=== PATIENT | male | born 1930 | race Caucasian/White ===

== ENCOUNTER 2018-09-14 00:29 | Inpatient (IN) ==
[2018-09-14] MEDS ORDERED: ALBUTEROL 2.5 MG/3 ML NEB RESP TX STA (01:20)
[2018-09-14 01:55] LABS: ABG Base Excess 2.5 MMOL/L (-2.5-2.5); ABG HCO3 26.6 MMOL/L (20-26); ABG Oxygen Saturation 99.3 % (95-100); ABG PCO2 48.7 MM HG (35-48); ABG PH 7.376 (7.35-7.45); ABG TCO2 25.2 MMOL/L (23-27); Allen Test Positive; Pt O2 Delivery Device CPAP
[2018-09-14] MEDS ORDERED: guaiFENesin/DM ER 600-30 MG TABLET PO PRN (02:58)
[2018-09-14] MEDS ORDERED: ACETAMINOPHEN 325 MG TABLET PO PRN (02:58)
[2018-09-14] MEDS ORDERED: ONDANSETRON 4 MG/2 ML VIAL IV PRN (02:58)
[2018-09-14 03:39] LABS: Calcium 8.6 MG/DL (8.5-10.1); Osmolality,Calculated 287.5 MOS/KG (273-304)
[2018-09-14 03:46] LABS: Basophils % 0.2 % (0.0-0.8); Hematocrit 40.4 VOL% (42.0-52.0); Immature Granulocytes % 0.7 %; Immature Granulocytes Absolute 0.12 #; Lymphocytes # 0.8 10*3/uL (1.4-4.0); Lymphocytes % 4.8 % (21.2-54.2); Mean Corpuscular HGB Conc 29.7 GM/DL (32-36); Mean Corpuscular Volume 89.2 FL (87-102); Mean Platelet Volume 10.3 FL (9.6-12.0); Monocytes % 1.4 % (1.7-12.7); Neutrophils % 92.9 % (38.7-73.9); Platelet Count 314 T/CUMM (130-400); Red Blood Count 4.53 MC/CUMM (3.8-5.5); Red Cell Distribution Width 15.4 % (9.3-17.3); White Blood Count 16.5 T/CUMM (4-12)
[2018-09-14 04:14] LABS: Lymphocytes 1 % (20-55); Platelet Estimate Normal; Polychromasia Few; Segmented Neutrophils 98 % (50-85); Total Cells Counted 100
[2018-09-14] MEDS: methylPREDNISolone SOD SUC 40 MG/1 ML VIAL IV SCH ×3 (05:27→23:46)
[2018-09-14] MEDS: ALBUTEROL 0.63 MG/3 ML NEB RESP TX SCH ×3 (07:47→19:30)
[2018-09-14] MEDS: MONTELUKAST 10 MG TABLET PO SCH (09:14)
[2018-09-14] MEDS: amLODIPine 5 MG TABLET PO SCH (09:14)
[2018-09-14] MEDS: FINASTERIDE 5 MG TABLET PO SCH (09:14)
[2018-09-14] MEDS: ALLOPURINOL 100 MG TABLET PO SCH (09:14)
[2018-09-14] MEDS: ENOXAPARIN 40 MG/0.4 ML SYRINGE SUBCUT SCH (09:14)
[2018-09-14] MEDS: PANTOPRAZOLE 40 MG TABLET PO SCH (09:14)
[2018-09-14] MEDS: cefTRIAXone 2,000 MG in SYRINGE 1 EACH IV SCH (11:39)
[2018-09-14] MEDS: ASPIRIN EC 81 MG TABLET PO SCH (11:51)
[2018-09-14] MEDS: metFORMIN 500 MG TABLET PO SCH (11:51)
[2018-09-14] MEDS: AZITHROMYCIN INJ 500 MG in SODIUM CHLORIDE 0.9% 250 ML IV SCH (11:53)
[2018-09-14] MEDS: BUDESONIDE 90 MCG INH SCH ×2 (16:50→23:33)
[2018-09-14] MEDS: TAMSULOSIN 0.4 MG CAPSULE PO SCH (17:16)
[2018-09-14] MEDS: INSULIN LISPRO 100 UNIT/ML SUBCUT SCH ×2 (17:16→21:16)
[2018-09-14] MEDS: ALBUTEROL 0.63 MG/3 ML NEB RESP TX PRN (18:09)
[2018-09-14] MEDS: INSULIN GLARGINE 100 UNIT/ML SUBCUT SCH (21:17)
[2018-09-14] MEDS: SENNA 8.6 MG TABLET PO SCH (21:17)
[2018-09-14] MEDS: MELATONIN 3 MG TABLET PO SCH (21:18)
[2018-09-15] MEDS: ALBUTEROL 0.63 MG/3 ML NEB RESP TX SCH ×4 (01:12→18:30)
[2018-09-15] MEDS: MONTELUKAST 10 MG TABLET PO SCH (08:49)
[2018-09-15] MEDS: amLODIPine 5 MG TABLET PO SCH (08:49)
[2018-09-15] MEDS: FINASTERIDE 5 MG TABLET PO SCH (08:49)
[2018-09-15] MEDS: PANTOPRAZOLE 40 MG TABLET PO SCH (08:49)
[2018-09-15] MEDS: THEOPHYLLINE ER (24 HR) 300 MG CAPSULE PO SCH (08:49)
[2018-09-15] MEDS: ALLOPURINOL 100 MG TABLET PO SCH (08:49)
[2018-09-15] MEDS: ENOXAPARIN 40 MG/0.4 ML SYRINGE SUBCUT SCH (08:50)
[2018-09-15] MEDS: INSULIN LISPRO 100 UNIT/ML SUBCUT SCH ×4 (08:52→20:31)
[2018-09-15] MEDS: metFORMIN 500 MG TABLET PO SCH (11:26)
[2018-09-15] MEDS: methylPREDNISolone SOD SUC 40 MG/1 ML VIAL IV SCH ×2 (11:27→23:49)
[2018-09-15] MEDS: ASPIRIN EC 81 MG TABLET PO SCH (11:27)
[2018-09-15] MEDS: cefTRIAXone 2,000 MG in SYRINGE 1 EACH IV SCH (11:29)
[2018-09-15] MEDS: AZITHROMYCIN INJ 500 MG in SODIUM CHLORIDE 0.9% 250 ML IV SCH (11:34)
[2018-09-15] MEDS: BUDESONIDE 90 MCG INH SCH ×2 (11:38→20:38)
[2018-09-15] MEDS: BUDESONIDE 0.5 MG/2 ML NEB RESP TX SCH ×2 (12:17→18:30)
[2018-09-15] MEDS: ARFORMOTEROL 15 MCG/2 ML NEB RESP TX SCH ×2 (12:17→18:30)
[2018-09-15] MEDS: DORNASE ALFA 2.5 MG/2.5 ML VIAL RESP TX SCH ×2 (12:17→18:30)
[2018-09-15] MEDS: POLYETHYLENE GLYCOL POWDER 17 GM PACK PO PRN (14:38)
[2018-09-15] MEDS: DOCUSATE SODIUM 100 MG CAPSULE PO PRN (14:38)
[2018-09-15] MEDS: TAMSULOSIN 0.4 MG CAPSULE PO SCH (17:40)
[2018-09-15] MEDS: MELATONIN 3 MG TABLET PO SCH (20:31)
[2018-09-15] MEDS: SENNA 8.6 MG TABLET PO SCH (20:31)
[2018-09-15] MEDS: INSULIN GLARGINE 100 UNIT/ML SUBCUT SCH (20:34)
[2018-09-16 04:46] LABS: Basophils % 0.2 % (0.0-0.8); Eosinophils % 0.1 % (0.00-10.9); Hematocrit 39.7 VOL% (42.0-52.0); Hemoglobin 12.2 GM/DL (14.0-18.0); Immature Granulocytes % 0.9 %; Immature Granulocytes Absolute 0.11 #; Lymphocytes # 1.5 10*3/uL (1.4-4.0); Lymphocytes % 12.1 % (21.2-54.2); Mean Corpuscular HGB Conc 30.7 GM/DL (32-36); Mean Corpuscular Volume 87.4 FL (87-102); Mean Platelet Volume 9.7 FL (9.6-12.0); Monocytes % 2.9 % (1.7-12.7); Neutrophils % 83.8 % (38.7-73.9); Platelet Count 313 T/CUMM (130-400); Red Blood Count 4.54 MC/CUMM (3.8-5.5); White Blood Count 12.5 T/CUMM (4-12)
[2018-09-16 05:06] LABS: Calcium 8.7 MG/DL (8.5-10.1); Osmolality,Calculated 281.7 MOS/KG (273-304)
[2018-09-16] MEDS: ARFORMOTEROL 15 MCG/2 ML NEB RESP TX SCH ×2 (08:08→18:30)
[2018-09-16] MEDS: ALBUTEROL 0.63 MG/3 ML NEB RESP TX SCH ×4 (08:08→18:30)
[2018-09-16] MEDS: BUDESONIDE 0.5 MG/2 ML NEB RESP TX SCH ×2 (08:08→18:30)
[2018-09-16] MEDS: DORNASE ALFA 2.5 MG/2.5 ML VIAL RESP TX SCH ×2 (08:08→18:30)
[2018-09-16] MEDS: amLODIPine 5 MG TABLET PO SCH (09:46)
[2018-09-16] MEDS: ALLOPURINOL 100 MG TABLET PO SCH (09:47)
[2018-09-16] MEDS: MONTELUKAST 10 MG TABLET PO SCH (09:47)
[2018-09-16] MEDS: ENOXAPARIN 40 MG/0.4 ML SYRINGE SUBCUT SCH (09:47)
[2018-09-16] MEDS: FINASTERIDE 5 MG TABLET PO SCH (09:47)
[2018-09-16] MEDS: THEOPHYLLINE ER (24 HR) 300 MG CAPSULE PO SCH (09:47)
[2018-09-16] MEDS: INSULIN LISPRO 100 UNIT/ML SUBCUT SCH ×4 (09:47→21:07)
[2018-09-16] MEDS: PANTOPRAZOLE 40 MG TABLET PO SCH (09:47)
[2018-09-16] MEDS: cefTRIAXone 2,000 MG in SYRINGE 1 EACH IV SCH (11:13)
[2018-09-16] MEDS: AZITHROMYCIN INJ 500 MG in SODIUM CHLORIDE 0.9% 250 ML IV SCH (11:18)
[2018-09-16] MEDS: ALBUTEROL 0.63 MG/3 ML NEB RESP TX PRN (11:49)
[2018-09-16] MEDS: methylPREDNISolone SOD SUC 40 MG/1 ML VIAL IV SCH ×2 (12:55→23:23)
[2018-09-16] MEDS: ASPIRIN EC 81 MG TABLET PO SCH (12:56)
[2018-09-16] MEDS: metFORMIN 500 MG TABLET PO SCH (12:56)
[2018-09-16] MEDS: TAMSULOSIN 0.4 MG CAPSULE PO SCH (17:05)
[2018-09-16] MEDS: MELATONIN 3 MG TABLET PO SCH (21:05)
[2018-09-16] MEDS: SENNA 8.6 MG TABLET PO SCH (21:05)
[2018-09-16] MEDS: INSULIN GLARGINE 100 UNIT/ML SUBCUT SCH (21:06)
[2018-09-17] MEDS: ARFORMOTEROL 15 MCG/2 ML NEB RESP TX SCH ×2 (00:25→19:49)
[2018-09-17] MEDS: ALBUTEROL 0.63 MG/3 ML NEB RESP TX SCH ×4 (01:00→19:49)
[2018-09-17 04:36] LABS: Calcium 9.1 MG/DL (8.5-10.1); Osmolality,Calculated 281.8 MOS/KG (273-304)
[2018-09-17 04:45] LABS: Basophils % 0.2 % (0.0-0.8); Hemoglobin 12.8 GM/DL (14.0-18.0); Immature Granulocytes % 0.9 %; Immature Granulocytes Absolute 0.11 #; Lymphocytes # 1.9 10*3/uL (1.4-4.0); Lymphocytes % 14.9 % (21.2-54.2); Mean Corpuscular HGB Conc 30.6 GM/DL (32-36); Mean Corpuscular Volume 86.9 FL (87-102); Mean Platelet Volume 9.9 FL (9.6-12.0); Monocytes % 2.9 % (1.7-12.7); Neutrophils % 81.1 % (38.7-73.9); Platelet Count 306 T/CUMM (130-400); Red Blood Count 4.81 MC/CUMM (3.8-5.5); Red Cell Distribution Width 14.9 % (9.3-17.3); White Blood Count 12.7 T/CUMM (4-12)
[2018-09-17 04:48] LABS: Hematocrit 41.8 VOL% (42.0-52.0)
[2018-09-17] MEDS: DORNASE ALFA 2.5 MG/2.5 ML VIAL RESP TX SCH ×2 (07:25→19:49)
[2018-09-17] MEDS: BUDESONIDE 0.5 MG/2 ML NEB RESP TX SCH ×2 (07:25→19:49)
[2018-09-17] MEDS: INSULIN LISPRO 100 UNIT/ML SUBCUT SCH ×4 (09:23→20:58)
[2018-09-17] MEDS: PANTOPRAZOLE 40 MG TABLET PO SCH (09:24)
[2018-09-17] MEDS: FINASTERIDE 5 MG TABLET PO SCH (09:24)
[2018-09-17] MEDS: amLODIPine 5 MG TABLET PO SCH (09:24)
[2018-09-17] MEDS: MONTELUKAST 10 MG TABLET PO SCH (09:24)
[2018-09-17] MEDS: THEOPHYLLINE ER (24 HR) 300 MG CAPSULE PO SCH (09:24)
[2018-09-17] MEDS: ENOXAPARIN 40 MG/0.4 ML SYRINGE SUBCUT SCH (09:24)
[2018-09-17] MEDS: ALLOPURINOL 100 MG TABLET PO SCH (09:25)
[2018-09-17] MEDS: cefTRIAXone 2,000 MG in SYRINGE 1 EACH IV SCH (11:40)
[2018-09-17] MEDS: AZITHROMYCIN INJ 500 MG in SODIUM CHLORIDE 0.9% 250 ML IV SCH (11:41)
[2018-09-17] MEDS: metFORMIN 500 MG TABLET PO SCH (11:42)
[2018-09-17] MEDS: ASPIRIN EC 81 MG TABLET PO SCH (11:42)
[2018-09-17] MEDS: methylPREDNISolone SOD SUC 40 MG/1 ML VIAL IV SCH ×2 (11:42→20:58)
[2018-09-17] MEDS ORDERED: FUROSEMIDE 40 MG/4 ML VIAL IV ONE (16:39)
[2018-09-17] MEDS: TAMSULOSIN 0.4 MG CAPSULE PO SCH (17:47)
[2018-09-17] MEDS: SENNA 8.6 MG TABLET PO SCH (20:59)
[2018-09-17] MEDS: INSULIN GLARGINE 100 UNIT/ML SUBCUT SCH (20:59)
[2018-09-17] MEDS: MELATONIN 3 MG TABLET PO SCH (20:59)
[2018-09-18] MEDS: ALBUTEROL 0.63 MG/3 ML NEB RESP TX SCH ×4 (00:20→19:22)
[2018-09-18 04:57] LABS: Calcium 9.2 MG/DL (8.5-10.1); Osmolality,Calculated 289.5 MOS/KG (273-304)
[2018-09-18] MEDS: methylPREDNISolone SOD SUC 40 MG/1 ML VIAL IV SCH ×3 (04:59→21:20)
[2018-09-18 05:23] LABS: Basophils % 0.3 % (0.0-0.8); Hematocrit 42.5 VOL% (42.0-52.0); Immature Granulocytes % 0.9 %; Immature Granulocytes Absolute 0.13 #; Lymphocytes # 1.7 10*3/uL (1.4-4.0); Lymphocytes % 12.6 % (21.2-54.2); Mean Corpuscular HGB Conc 30.1 GM/DL (32-36); Mean Corpuscular Volume 87.4 FL (87-102); Mean Platelet Volume 9.8 FL (9.6-12.0); Neutrophils % 82.2 % (38.7-73.9); Platelet Count 293 T/CUMM (130-400); Red Blood Count 4.86 MC/CUMM (3.8-5.5); Red Cell Distribution Width 14.9 % (9.3-17.3); White Blood Count 13.8 T/CUMM (4-12)
[2018-09-18 05:24] LABS: Hemoglobin 12.8 GM/DL (14.0-18.0)
[2018-09-18] MEDS: ARFORMOTEROL 15 MCG/2 ML NEB RESP TX SCH ×2 (07:25→19:22)
[2018-09-18] MEDS: BUDESONIDE 0.5 MG/2 ML NEB RESP TX SCH ×2 (07:25→19:22)
[2018-09-18] MEDS: DORNASE ALFA 2.5 MG/2.5 ML VIAL RESP TX SCH ×2 (07:38→19:22)
[2018-09-18] MEDS: amLODIPine 5 MG TABLET PO SCH (09:20)
[2018-09-18] MEDS: PANTOPRAZOLE 40 MG TABLET PO SCH (09:20)
[2018-09-18] MEDS: INSULIN LISPRO 100 UNIT/ML SUBCUT SCH ×4 (09:20→21:17)
[2018-09-18] MEDS: MONTELUKAST 10 MG TABLET PO SCH (09:20)
[2018-09-18] MEDS: THEOPHYLLINE ER (24 HR) 300 MG CAPSULE PO SCH (09:20)
[2018-09-18] MEDS: ALLOPURINOL 100 MG TABLET PO SCH (09:20)
[2018-09-18] MEDS: FINASTERIDE 5 MG TABLET PO SCH (09:20)
[2018-09-18] MEDS: ENOXAPARIN 40 MG/0.4 ML SYRINGE SUBCUT SCH (09:21)
[2018-09-18] MEDS: AZITHROMYCIN INJ 500 MG in SODIUM CHLORIDE 0.9% 250 ML IV SCH (12:54)
[2018-09-18] MEDS: cefTRIAXone 2,000 MG in SYRINGE 1 EACH IV SCH (12:55)
[2018-09-18] MEDS: metFORMIN 500 MG TABLET PO SCH (12:57)
[2018-09-18] MEDS: ASPIRIN EC 81 MG TABLET PO SCH (12:57)
[2018-09-18] MEDS: POLYETHYLENE GLYCOL POWDER 17 GM PACK PO PRN (17:16)
[2018-09-18] MEDS: DOCUSATE SODIUM 100 MG CAPSULE PO PRN (17:16)
[2018-09-18] MEDS: TAMSULOSIN 0.4 MG CAPSULE PO SCH (17:16)
[2018-09-18] MEDS: INSULIN GLARGINE 100 UNIT/ML SUBCUT SCH (21:16)
[2018-09-18] MEDS: SENNA 8.6 MG TABLET PO SCH (21:19)
[2018-09-18] MEDS: MELATONIN 3 MG TABLET PO SCH (21:19)
[2018-09-19] MEDS: ALBUTEROL 0.63 MG/3 ML NEB RESP TX SCH ×4 (00:41→18:54)
[2018-09-19] MEDS: methylPREDNISolone SOD SUC 40 MG/1 ML VIAL IV SCH ×2 (05:13→12:30)
[2018-09-19] MEDS: POLYETHYLENE GLYCOL POWDER 17 GM PACK PO PRN (06:43)
[2018-09-19 06:46] LABS: Basophils % 0.2 % (0.0-0.8); Hematocrit 41.2 VOL% (42.0-52.0); Hemoglobin 12.4 GM/DL (14.0-18.0); Immature Granulocytes Absolute 0.18 #; Lymphocytes # 3.1 10*3/uL (1.4-4.0); Lymphocytes % 16.7 % (21.2-54.2); Mean Corpuscular HGB Conc 30.1 GM/DL (32-36); Mean Corpuscular Volume 88.6 FL (87-102); Mean Platelet Volume 9.8 FL (9.6-12.0); Monocytes % 4.7 % (1.7-12.7); Neutrophils % 77.4 % (38.7-73.9); Platelet Count 286 T/CUMM (130-400); Red Blood Count 4.65 MC/CUMM (3.8-5.5); Red Cell Distribution Width 15.1 % (9.3-17.3); White Blood Count 18.3 T/CUMM (4-12)
[2018-09-19 07:14] LABS: Calcium 8.9 MG/DL (8.5-10.1)
[2018-09-19] MEDS: BUDESONIDE 0.5 MG/2 ML NEB RESP TX SCH ×2 (07:17→18:54)
[2018-09-19] MEDS: ARFORMOTEROL 15 MCG/2 ML NEB RESP TX SCH ×2 (07:17→18:54)
[2018-09-19] MEDS: DORNASE ALFA 2.5 MG/2.5 ML VIAL RESP TX SCH ×2 (07:17→19:10)
[2018-09-19] MEDS: MONTELUKAST 10 MG TABLET PO SCH (08:40)
[2018-09-19] MEDS: FINASTERIDE 5 MG TABLET PO SCH (08:40)
[2018-09-19] MEDS: THEOPHYLLINE ER (24 HR) 300 MG CAPSULE PO SCH (08:40)
[2018-09-19] MEDS: PANTOPRAZOLE 40 MG TABLET PO SCH (08:41)
[2018-09-19] MEDS: ALLOPURINOL 100 MG TABLET PO SCH (08:41)
[2018-09-19] MEDS: ENOXAPARIN 40 MG/0.4 ML SYRINGE SUBCUT SCH (08:41)
[2018-09-19] MEDS: INSULIN LISPRO 100 UNIT/ML SUBCUT SCH ×4 (08:41→21:44)
[2018-09-19] MEDS: amLODIPine 5 MG TABLET PO SCH (08:41)
[2018-09-19] MEDS: DOCUSATE SODIUM 100 MG CAPSULE PO PRN (08:41)
[2018-09-19] MEDS: AZITHROMYCIN INJ 500 MG in SODIUM CHLORIDE 0.9% 250 ML IV SCH (12:30)
[2018-09-19] MEDS: metFORMIN 500 MG TABLET PO SCH (12:39)
[2018-09-19] MEDS: ASPIRIN EC 81 MG TABLET PO SCH (12:39)
[2018-09-19] MEDS: cefTRIAXone 2,000 MG in SYRINGE 1 EACH IV SCH (12:39)
[2018-09-19] MEDS ORDERED: methylPREDNISolone SOD SUC 40 MG/1 ML VIAL IV SCH ×2 (17:00)
[2018-09-19] MEDS: TAMSULOSIN 0.4 MG CAPSULE PO SCH (17:15)
[2018-09-19] MEDS: MELATONIN 3 MG TABLET PO SCH (21:39)
[2018-09-19] MEDS: SENNA 8.6 MG TABLET PO SCH (21:39)
[2018-09-19] MEDS: INSULIN GLARGINE 100 UNIT/ML SUBCUT SCH (21:40)
[2018-09-20] MEDS: ALBUTEROL 0.63 MG/3 ML NEB RESP TX SCH ×2 (00:37→08:40)
[2018-09-20 04:42] LABS: Basophils % 0.2 % (0.0-0.8); Hematocrit 41.9 VOL% (42.0-52.0); Hemoglobin 12.9 GM/DL (14.0-18.0); Immature Granulocytes % 0.9 %; Immature Granulocytes Absolute 0.21 #; Lymphocytes # 4.2 10*3/uL (1.4-4.0); Lymphocytes % 18.6 % (21.2-54.2); Mean Corpuscular HGB Conc 30.8 GM/DL (32-36); Mean Corpuscular Volume 87.3 FL (87-102); Monocytes % 5.8 % (1.7-12.7); Neutrophils % 74.5 % (38.7-73.9); Platelet Count 296 T/CUMM (130-400); Red Cell Distribution Width 15.2 % (9.3-17.3); White Blood Count 22.3 T/CUMM (4-12)
[2018-09-20 04:59] LABS: Calcium 8.9 MG/DL (8.5-10.1); Osmolality,Calculated 290.3 MOS/KG (273-304)
[2018-09-20 06:18] LABS: Anisocytosis 1+; Lymphocytes 18 % (20-55); Platelet Estimate Adequate; Segmented Neutrophils 80 % (50-85); Total Cells Counted 100
[2018-09-20] MEDS: MONTELUKAST 10 MG TABLET PO SCH (08:00)
[2018-09-20] MEDS: PANTOPRAZOLE 40 MG TABLET PO SCH (08:00)
[2018-09-20] MEDS: FINASTERIDE 5 MG TABLET PO SCH (08:00)
[2018-09-20] MEDS: ENOXAPARIN 40 MG/0.4 ML SYRINGE SUBCUT SCH (08:00)
[2018-09-20] MEDS: THEOPHYLLINE ER (24 HR) 300 MG CAPSULE PO SCH (08:00)
[2018-09-20] MEDS: amLODIPine 5 MG TABLET PO SCH (08:00)
[2018-09-20] MEDS: ALLOPURINOL 100 MG TABLET PO SCH (08:01)
[2018-09-20] MEDS: INSULIN LISPRO 100 UNIT/ML SUBCUT SCH ×2 (08:01→11:50)
[2018-09-20] MEDS: ARFORMOTEROL 15 MCG/2 ML NEB RESP TX SCH (08:41)
[2018-09-20] MEDS: BUDESONIDE 0.5 MG/2 ML NEB RESP TX SCH (08:41)
[2018-09-20] MEDS: DORNASE ALFA 2.5 MG/2.5 ML VIAL RESP TX SCH (08:41)
[2018-09-20] MEDS ORDERED: AZITHROMYCIN 250 MG TABLET PO SCH (09:00)
[2018-09-20 11:36] VITALS: BP 129/64
[2018-09-20] MEDS: ASPIRIN EC 81 MG TABLET PO SCH (11:50)
[2018-09-20] MEDS: metFORMIN 500 MG TABLET PO SCH (11:50)
[2018-09-20] MEDS: cefTRIAXone 2,000 MG in SYRINGE 1 EACH IV SCH (11:52)
[2018-09-20] MEDS ORDERED: PIPERACILLIN/TAZOBACTAM 3,375 MG in SODIUM CHLORIDE 0.9% 100 ML IV SCH (13:00)
== END 2018-09-20 13:43 | disposition home health service (06) | DRG 189 ==
LOC: EDBD → EDUNIT# → N.EDINP 00:29 → N.ED 00:29 → N.5E 03:29 → SUATTDRO 11:01
PROVIDERS: ADMIT Hospitalist; ATTEND Internal Medicine

== ENCOUNTER 2018-10-23 22:33 | Inpatient (IN) ==
[2018-10-23] MEDS ORDERED: SODIUM CHLORIDE 0.9% 1,000 ML IV STA (22:56)
[2018-10-23 23:35] LABS: Basophils # 0.1 10*3/uL (0.0-0.2); Basophils % 0.4 % (0.0-0.8); Hematocrit 43.6 VOL% (42.0-52.0); Hemoglobin 13.3 GM/DL (14.0-18.0); Immature Granulocytes % 0.8 %; Immature Granulocytes Absolute 0.18 #; Lymphocytes # 1.9 10*3/uL (1.4-4.0); Lymphocytes % 8.7 % (21.2-54.2); Mean Corpuscular HGB Conc 30.5 GM/DL (32-36); Mean Corpuscular Volume 85.5 FL (87-102); Mean Platelet Volume 9.8 FL (9.6-12.0); Monocytes % 4.8 % (1.7-12.7); Neutrophils % 85.3 % (38.7-73.9); Platelet Count 345 T/CUMM (130-400); Red Cell Distribution Width 15.7 % (9.3-17.3); White Blood Count 22.3 T/CUMM (4-12)
[2018-10-23 23:49] LABS: INR 1.1; PT Patient Result 11.7 SECS; Partial Thromboplastin Time 26.6 SECS (0-40)
[2018-10-23 23:57] LABS: Alanine Aminotransferase 37 U/L (16-61); Alkaline Phosphatase 88 U/L (45-117); Aspartate Amino Transferase 52 U/L (0-37); Blood Urea Nitrogen 26 MG/DL (7-18); CKMB % 2.7 %; Glucose 231 MG/DL (74-106); Osmolality,Calculated 284.8 MOS/KG (273-304); Total Protein 7.3 G/DL (6.4-8.3); Troponin I < 0.015 NG/ML (0.00-0.045)
[2018-10-24] MEDS ORDERED: VANCOMYCIN INJ 1,000 MG in SODIUM CHLORIDE 0.9% 250 ML IV STA (00:02)
[2018-10-24 00:20] LABS: Band Neutrophils 3 % (0-10); Lymphocytes 7 % (20-55); Segmented Neutrophils 87 % (50-85); Total Cells Counted 100
[2018-10-24 00:21] LABS: Anisocytosis 1+; Platelet Estimate Adequate
[2018-10-24] MEDS ORDERED: diphenhydrAMINE CAP 25 MG CAPSULE PO PRN (01:05)
[2018-10-24] MEDS ORDERED: ONDANSETRON 4 MG/2 ML VIAL IV PRN (01:05)
[2018-10-24] MEDS ORDERED: GLUCAGON 1 MG VIAL IM PRN (01:54)
[2018-10-24] MEDS ORDERED: DEXTROSE 50% 25 GM/50 ML VIAL IV PRN (01:54)
[2018-10-24 01:59] LABS: Apearance,Urine CLOUDY (Clear); Bilirubin,Urine Negative (Negative); Blood, Urine Large mg/dL (Negative); Glucose,Urine (UA) 50 mg/dL (Negative); Ketones,Urine 5 mg/dL (Negative); Nitrite,Urine Negative (Negative); Protein,Urine >=500 MG/DL; RBC,Urine 762 /HPF (0-4); Urine Color Yellow (Yellow); Urine Specific Gravity 1.019 (1.001-1.035); Urine Urobilinogen < 2.0 EU/DL (0.2-1.0); WBC,Urine 2401 /HPF (0-6)
[2018-10-24] MEDS: SODIUM CHLORIDE 0.9% 1,000 ML IV SCH ×3 (04:30→21:28)
[2018-10-24] MEDS: ACETAMINOPHEN 325 MG TABLET PO PRN (04:37)
[2018-10-24 06:21] LABS: CKMB % 2.2 %
[2018-10-24 06:31] LABS: Albumin 1.6 G/DL (3.4-5.0); Calcium 8.3 MG/DL (8.5-10.1); Osmolality,Calculated 291.3 MOS/KG (273-304); Total Protein 6.3 G/DL (6.4-8.3)
[2018-10-24] MEDS ORDERED: NICOTINE 21 MG/24 HR PATCH TRANSDERM PRN (09:00)
[2018-10-24] MEDS ORDERED: VANCOMYCIN INJ 1,250 MG in SODIUM CHLORIDE 0.9% 250 ML IV SCH (09:00)
[2018-10-24] MEDS: cefTRIAXone 2,000 MG in SYRINGE 1 EACH IV SCH (09:05)
[2018-10-24] MEDS: INSULIN REGULAR 100 UNIT/ML SUBCUT SCH ×4 (09:05→21:29)
[2018-10-24] MEDS: ENOXAPARIN 40 MG/0.4 ML SYRINGE SUBCUT SCH (14:51)
[2018-10-25] MEDS: SODIUM CHLORIDE 0.9% 1,000 ML IV SCH ×2 (05:23→22:42)
[2018-10-25 07:44] LABS: Basophils % 0.2 % (0.0-0.8); Eosinophils # 0.1 10*3/uL (0.0-0.87); Eosinophils % 0.8 % (0.00-10.9); Hemoglobin 11.6 GM/DL (14.0-18.0); Immature Granulocytes % 0.6 %; Immature Granulocytes Absolute 0.08 #; Lymphocytes # 2.5 10*3/uL (1.4-4.0); Lymphocytes % 17.4 % (21.2-54.2); Mean Corpuscular HGB Conc 30.5 GM/DL (32-36); Mean Corpuscular Volume 86.6 FL (87-102); Mean Platelet Volume 9.8 FL (9.6-12.0); Monocytes % 5.6 % (1.7-12.7); Neutrophils % 75.4 % (38.7-73.9); Platelet Count 356 T/CUMM (130-400); Red Blood Count 4.39 MC/CUMM (3.8-5.5); Red Cell Distribution Width 15.9 % (9.3-17.3); White Blood Count 14.1 T/CUMM (4-12)
[2018-10-25 08:07] LABS: Albumin 1.5 G/DL (3.4-5.0); Calcium 7.9 MG/DL (8.5-10.1); Osmolality,Calculated 289.7 MOS/KG (273-304)
[2018-10-25] MEDS: INSULIN REGULAR 100 UNIT/ML SUBCUT SCH ×4 (08:59→21:42)
[2018-10-25] MEDS: cefTRIAXone 2,000 MG in SYRINGE 1 EACH IV SCH (09:00)
[2018-10-25] MEDS: ENOXAPARIN 40 MG/0.4 ML SYRINGE SUBCUT SCH (15:11)
[2018-10-25] MEDS ORDERED: TUBERCULIN SKIN TEST 0.1 ML SYRINGE INTRADERM ONE (17:18)
[2018-10-25] MEDS: ACETAMINOPHEN 325 MG TABLET PO PRN (23:31)
[2018-10-26] MEDS: SODIUM CHLORIDE 0.9% 1,000 ML IV SCH ×2 (00:27→00:31)
[2018-10-26 06:12] LABS: Calcium 7.8 MG/DL (8.5-10.1); Osmolality,Calculated 291.7 MOS/KG (273-304); Total Protein 5.1 G/DL (6.4-8.3)
[2018-10-26] MEDS: INSULIN REGULAR 100 UNIT/ML SUBCUT SCH ×4 (10:00→20:51)
[2018-10-26] MEDS: cefTRIAXone 2,000 MG in SYRINGE 1 EACH IV SCH (10:00)
[2018-10-26] MEDS: ACETAMINOPHEN 325 MG TABLET PO PRN (10:04)
[2018-10-26] MEDS: LACTATED RINGERS 1,000 ML IV SCH ×2 (10:09→20:55)
[2018-10-26] MEDS: ENOXAPARIN 40 MG/0.4 ML SYRINGE SUBCUT SCH (14:21)
[2018-10-26] MEDS: MEROPENEM 500 MG in SODIUM CHLORIDE 0.9% 100 ML IV SCH (15:35)
[2018-10-27] MEDS: MEROPENEM 500 MG in SODIUM CHLORIDE 0.9% 100 ML IV SCH ×2 (02:56→15:14)
[2018-10-27] MEDS: LACTATED RINGERS 1,000 ML IV SCH ×2 (05:33→23:41)
[2018-10-27 06:47] LABS: Albumin 1.5 G/DL (3.4-5.0); Calcium 7.6 MG/DL (8.5-10.1); Osmolality,Calculated 285.7 MOS/KG (273-304)
[2018-10-27] MEDS: INSULIN REGULAR 100 UNIT/ML SUBCUT SCH ×4 (07:52→21:51)
[2018-10-27] MEDS: ENOXAPARIN 40 MG/0.4 ML SYRINGE SUBCUT SCH (15:14)
[2018-10-28] MEDS: MEROPENEM 500 MG in SODIUM CHLORIDE 0.9% 100 ML IV SCH ×2 (02:16→13:39)
[2018-10-28 08:53] LABS: Total Protein (Chem) 5.1 G/DL (6.4-8.3)
[2018-10-28] MEDS: LACTATED RINGERS 1,000 ML IV SCH (09:31)
[2018-10-28] MEDS: INSULIN REGULAR 100 UNIT/ML SUBCUT SCH ×4 (09:31→21:58)
[2018-10-28 10:28] LABS: Albumin (SPE) 1.9 G/DL (3.2-5.3); Albumin (SPE) Rel % 38.2 %; Alpha 1 (SPE) 0.4 G/DL (0.1-0.4); Alpha 1 (SPE) Rel % 7.5 %; Alpha 2 (SPE) 1.1 G/DL (0.4-1.0); Alpha 2 (SPE) Rel % 20.6 %; Beta (SPE) 0.6 G/DL (0.5-1.1); Beta (SPE) Rel % 11.3 %; Gamma (SPE) 1.1 G/DL (0.7-1.7); Gamma (SPE) Rel % 22.4 %
[2018-10-28] MEDS: FLUCONAZOLE INJ 200 MG in PREMIX 1 EACH IV SCH (12:42)
[2018-10-28] MEDS ORDERED: POLYETHYLENE GLYCOL POWDER 17 GM PACK PO PRN (21:24)
[2018-10-28] MEDS ORDERED: ALBUTEROL 2.5 MG/3 ML NEB RESP TX PRN (21:24)
[2018-10-28] MEDS ORDERED: TAMSULOSIN 0.4 MG CAPSULE PO SCH (21:30)
[2018-10-28] MEDS ORDERED: MELATONIN 3 MG TABLET PO SCH (21:30)
[2018-10-28] MEDS ORDERED: THEOPHYLLINE 200 MG PO SCH (21:30)
[2018-10-28] MEDS: ALBUTEROL 2 MG TABLET PO SCH (22:53)
[2018-10-28] MEDS: BUDESONIDE/FORMOTEROL 160-4.5 INHALER 6 GM INH SCH (22:57)
[2018-10-29] MEDS: MEROPENEM 500 MG in SODIUM CHLORIDE 0.9% 100 ML IV SCH ×2 (02:46→14:45)
[2018-10-29] MEDS: BUDESONIDE 0.25 MG/2 ML NEB RESP TX SCH ×2 (07:45→20:04)
[2018-10-29] MEDS ORDERED: ALLOPURINOL 100 MG TABLET PO SCH (09:00)
[2018-10-29] MEDS ORDERED: amLODIPine 5 MG TABLET PO SCH (09:00)
[2018-10-29] MEDS ORDERED: CYANOCOBALAMIN 1000 MCG/1 ML VIAL IM SCH (09:00)
[2018-10-29] MEDS ORDERED: DOCUSATE/SENNA 50-8.6 MG TABLET PO SCH (09:00)
[2018-10-29] MEDS ORDERED: PANTOPRAZOLE 40 MG TABLET PO SCH (09:00)
[2018-10-29] MEDS ORDERED: MONTELUKAST 10 MG TABLET PO SCH (09:00)
[2018-10-29] MEDS ORDERED: ASPIRIN EC 81 MG TABLET PO SCH (09:00)
[2018-10-29] MEDS ORDERED: LIDOCAINE 2% 5 ML VIAL ONE (09:30)
[2018-10-29] MEDS ORDERED: PROPOFOL 200 MG/20 ML VIAL IV ONE (09:30)
[2018-10-29] MEDS: INSULIN REGULAR 100 UNIT/ML SUBCUT SCH ×3 (10:54→17:26)
[2018-10-29] MEDS: LACTATED RINGERS 1,000 ML IV SCH (10:56)
[2018-10-29] MEDS: ALBUTEROL 2 MG TABLET PO SCH ×2 (11:42→17:26)
[2018-10-29] MEDS: BUDESONIDE/FORMOTEROL 160-4.5 INHALER 6 GM INH SCH (11:47)
[2018-10-29] MEDS: FLUCONAZOLE INJ 200 MG in PREMIX 1 EACH IV SCH (13:05)
[2018-10-29 20:11] VITALS: BP 139/76
== END 2018-10-29 19:20 | DRG 564 ==
LOC: EDUNIT# → N.EDINP 22:33 → N.ED 22:33 → N.5E 10-24 03:35 → SUATTDRO 10-24 12:15
PROVIDERS: ADMIT Internal Medicine Geriatric Medicine